=== PATIENT | male | born 1985 | race African-American/Black ===

== ENCOUNTER 2018-10-28 15:37 | Inpatient (IN) ==
[2018-10-28] MEDS ORDERED: D5 NS 1,000 ML IV ONE (16:42)
[2018-10-28] MEDS ORDERED: NS 1,000 ML IV ONE (17:06)
[2018-10-28 17:16] LABS: BASO# 0.03 X1000 (0.0-0.2); BASO% 0.4 % (0.0-0.8); EOS% 1.4 % (0.0-10.0); HEMATOCRIT 45.5 % (42.0-52.0); HEMOGLOBIN 14.9 g/dL (14.0-18.0); IMM GRAN# 0.02 X1000 (0.0-0.04); IMM GRAN% 0.3 % (0.0-0.5); MCH 29.6 PG (27-31); MCHC 32.7 g/dL (33-37); MCV 90.5 FL (81-99); MONO# 0.86 X1000 (0.11-0.59); MONO% 12.4 % (1.7-9.3); MPV 10.2 FL (7.4-10.4); NEUT% 59.5 % (42.2-75.2); PLT 211 X1000 (130-400); RBC 5.03 XMIL (4.7-6.1); WBC 6.91 X1000 (4.8-10.8)
[2018-10-28] MEDS ORDERED: MORPHINE IV ONE ×2 (17:18→19:05)
[2018-10-28 17:39] LABS: AGAP 14; ALB/GLOB RATIO 1.1; ALBUMIN 4.2 g/dL (3.5-5.0); ALKALINE PHOSPHATASE 58 U/L (32-122); BUN 11 mg/dL (8-22); CALCIUM 9.2 mg/dL (8.8-10.2); CHLORIDE 103 mmol/L (98-107); COSMO 280; CREATININE 0.9 mg/dL (0.7-1.2); ESTIMATED GFR > 60; GLUCOSE 84 mg/dL (70-104); GOT 14 U/L (10-34); GPT 8 U/L (10-44); POTASSIUM 3.4 mmol/L (3.5-5.1); SODIUM 141 mmol/L (136-145); TCO2 24 mmol/L (25-35); TOTAL BILIRUBIN 0.53 mg/dL (0.20-1.00); TOTAL PROTEIN 7.9 g/dL (6.3-8.3)
[2018-10-28 18:08] LABS: URINE SOURCE CLEAN CATCH
[2018-10-28 18:20] LABS: UR EPITHELIAL CELLS <10 /HPF (<10); URINE BACTERIA NEGATIVE /HPF; URINE RBC <10 /HPF (<10); URINE WBC <10 /HPF (<10)
--- NOTE | 2018-10-28 18:31 | Diag Imaging Result Doc PS360 ---
EXAM: CT ABD/PELVIS W/IV CONT ONLY 10/28/2018 HISTORY: Abdominal pain, FBBPR TECHNIQUE: This exam was performed using automated exposure control, adjustment of mA or kV according to patient size, and/or use of iterative reconstruction technique. COMMENT: The visualized portion of the chest is within normal limits. There are no previous studies available for comparison. The spleen and adrenal glands are not enlarged. The pancreas is unremarkable. There is no evidence of gallstones or cholecystitis. The liver is unremarkable. There is a fairly large amount of stool present in the ascending and transverse colon. The small bowel is not distended. The kidneys are without evidence of hydronephrosis or mass. The aorta is not distended. Pelvis: Some of the distal small bowel loops containing fluid without evidence of mucosal thickening. There is fluid in the cecum. The appendix is normal in caliber. There is some apparent perirectal inflammation and dilatation of perirectal veins. There are multiple enlarged perirectal nodes. The regional skeleton is intact. IMPRESSION: The possibility of mild enterocolitis cannot be excluded. Proctitis. Electronically signed by Zohaib Xiao 10/28/2018 6:28 PM
[2018-10-28 18:34] LABS: BILIRUBIN URINE SMALL (NEGATIVE); BLOOD URINE SMALL (NEGATIVE); COLOR YELLOW; GLUCOSE URINE NEGATIVE (NEGATIVE); KETONE URINE 40 mg/dL (NEGATIVE); LEUKOCYTES URINE NEGATIVE (NEGATIVE); NITRITE URINE NEGATIVE (NEGATIVE); PROTEIN URINE 50 mg/dL (NEGATIVE); SP GRAVITY URINE > 1.050; TURBIDITY URINE CLEAR (CLEAR); UROBILINOGEN URINE 4 mg/dL (NORMAL)
[2018-10-28] MEDS ORDERED: FLAGYL 750 MG in NS 150 ML IV ONE (18:44)
[2018-10-28] MEDS ORDERED: LEVAQUIN 750 MG/D5W 750 MG/150 ML IVPB IV ONE (18:44)
[2018-10-28] MEDS ORDERED: ZOFRAN IV ONE (20:19)
[2018-10-28] MEDS ORDERED: ZOFRAN ONE (20:21)
[2018-10-28] MEDS ORDERED: ZOFRAN IV PRN (21:51)
[2018-10-28] MEDS ORDERED: TYLENOL PO PRN (21:51)
--- NOTE | 2018-10-28 22:28 | PROVIDER DOCUMENTATION ---
This chart was entered by Yolis Aleman Scribe, acting as scribe for Alexx Junior MD. HPI-Abdominal Pain/GI Problem - General Chief Complaint: Constipation Stated Complaint: MALE Time Seen by Provider: 10/28/18 15:42 Source: patient Allergies/Adverse Reactions: Patient Allergies Allergy/AdvReac Type Severity Reaction Status Date / Time No Known Allergies Allergy Verified 10/28/18 15:45 Home Medications: Home Medication List Medication Instructions Recorded Confirmed Last Taken Type Elviteg/Cob/Emtri/Tenof Alafen 150 mg HS 10/28/18 10/28/18 10/27/18 History [Genvoya Tablet] Sertraline [Zoloft] 50 mg PO QHS 10/28/18 10/28/18 10/27/18 History Sulfamethoxazole/Trimethoprim 1 each PO QHS 10/28/18 10/28/18 10/27/18 History [Bactrim Ds Tablet] - History of Present Illness-ABD Nature of Presenting Problems: 33 yobm presents to the ed with c/o abdominal pain with constipation. pt sts has not had a bm in 5 days Abdominal Pain Onset Location: reports: LUQ, LLQ Pain Radiation: reports: no radiation Quality of Pain: reports: cramping (06/21) Severity in ED: reports: severe Onset/Duration: reports: 5 days ago Timing: reports: still present, intermittent Activities at Onset: reports: light activity Modifying Factors: improves with: nothing Associated Symptoms: reports: constipation, loss of appetite. denies: back/ neck pain, diarrhea, EENT symptoms, fever/chills, malaise, nausea, syncope, vomiting, weakness Last BM: 5 days ago Dark Stools Present?: reports: bright red blood Rectal Bleeding: reports: bleeding without stool # of Diarrhea Episodes: 0 Rectal Pain: reports: other (c/o pain hiv pt) # of Vomiting Episodes: 0 Emesis Description: reports: none Bruising or Bleeding Gums?: No Similar Symptoms Previously?: Yes (hx of constipation) Recently seen or treated by another doctor?: No Review of Systems - Adult - REVIEW OF SYSTEMS - ADULT Constitutional: reports: other (decreased appetite). denies: chills, fever Eyes: reports: no symptoms reported Ears, Nose, Mouth & Throat: reports: no symptoms reported Cardiovascular: denies: chest pain, palpitations Respiratory: denies: shortness of breath, wheezing Gastrointestinal: reports: see HPI, abdominal pain, constipation, poor appetite , rectal bleeding. denies: diarrhea, nausea, vomiting Genitourinary: reports: see HPI, other (rectal pain) Musculoskeletal: denies: back pain, neck pain Integumentary: reports: no symptoms reported Neurological: denies: dizziness/vertigo, headache/migraines Psychiatric: reports: no symptoms reported Endocrine: reports: no symptoms reported Hematologic/Lymphatic: reports: no symptoms reported Allergic/Immunologic: reports: no symptoms reported All Other Systems: Reviewed and Negative Past History - Adult - PAST MEDICAL HISTORY-ADULT Review of Records: reports: Old Records Reviewed, Nursing Assessment Review, Medications Reviewed, Social history reviewed & non-contributory. Major Childhood Illnesses: reports: denies history Cardiovascular: reports: denies history Respiratory: reports: denies history Gastrointestinal: reports: denies history Genitourinary: reports: denies history Musculoskeletal: reports: denies history Neurological: reports: denies history Psychiatric: reports: denies history Endocrine/Immune: reports: HIV/AIDS Other Conditions: reports: denies history - PRIOR SURGERIES/PROCEDURES Surgical/Procedure History: reports: reviewed, not pertinent - IMMUNIZATION STATUS Childhood Immunizations: See Nurse Assessment Flu Vaccine: See Nurse Assessment - FAMILY HISTORY Family History: reviewed, not pertinent - SOCIAL HISTORY Smoking: denies Substance Use: marijuana Living Situation: family Physical Exam-General - PHYSICAL EXAM-ADULT Initial Vital Signs Reviewed: Yes - CONSTITUTIONAL General Appearance: appears well, alert, no apparent distress, thin - EYES Eyes: PERRL/EOMI, pink conjunctivae - HEAD, EARS, NOSE, MOUTH & THROAT HENMT: moist mucous membranes, normal ENT inspection - NECK Neck: full range of motion, supple, normal inspection - RESPIRATORY Respiratory: chest non-tender, lungs clear, normal breath sounds - CARDIOVASCULAR Cardiovascular: normal peripheral pulses, regular rate, rhythm - GASTROINTESTINAL (ABDOMEN) Abdominal Exam: normal bowel sounds, soft, tenderness (LUQ, LLQ) - GENITOURINARY Male Genitalia: deferred Rectal Exam: normal exam, normal rectal tone, tenderness Hemoccult Exam: other (did not do) - LYMPHATIC Lymphatic: no adenopathy - MUSCULOSKELETAL Back Exam: normal inspection, no CVA tenderness, no vertebral tenderness Extremity: normal range of motion, non-tender, normal gait, normal inspection, no pedal edema, no calf tenderness, normal capillary refill, pelvis stable - SKIN Integumentary: normal color, normal turgor, warm/dry - NEUROLOGIC Neurologic: grossly normal, no motor/sensory deficits - PSYCHIATRIC Psych/Mental Status: normal mood/affect, normal thought content, normal thought process, oriented x 3 Progress - PLAN OF CARE/RESULTS Progress/Plan/Lab Results: Vital Signs - 8 hr 10/28/18 15:45 Temperature 97.7 F Pulse Rate 74 Respiratory Rate 17 Blood Pressure 131/65 O2 Sat by Pulse Oximetry 100 Patient care, assessment and plan discussed with the attending physician Dr. John Milian and he agree with the plan as documented. Result Diagrams: 10/28/18 16:21 10/28/18 16:21 - REASSESSMENT Reassessment #1 Time Reassessed: 16:19 Status: unchanged Reassessment #2 Time Reassessed: 17:44 Status: improving (ABDOMINAL PAIN IS BETTER. Patient informed about the Dx and the plan.) - CONSULTS/PCP/HOSPITALIST Notification #1 *Consult/PCP/Hospitalist*: Dr. Reed Time Discussed: 18:46 Consult Disposition: Admit (Accpeted.) Departure - Departure Date of Disposition Decision: 10/28/18 Time of Disposition Decision: 18:46 DIAGNOSIS: Proctitis, BRBPR (bright red blood per rectum) Disposition: ADMITTED INPATIENT 09 Certified Medical Emergency: Emergent Condition: Stable - Critical Care Note This patient required my direct & personal management of CC.: No Attestation - Physician/ MEETA Attestation Patient care was provided by Advanced Practice Provider:: No The physician spent face to face time with patient:: Yes Advanced Practice Provider documentation review:: Supervising physician onsite and consulted in the evaluation and care of this patient. The physician did have a face to face encounter with the patient. This chart was documented by the indicated scribe, (Yolis Aleman Scribe) and accurately reflects the services I performed and decisions made by me, Alexx Junior MD, as attested by the provider's signature.
[2018-10-28] MEDS: PROTONIX IV SCH (22:42)
[2018-10-28] MEDS: DILAUDID IV PRN (22:42)
[2018-10-28] MEDS: NS 1,000 ML IV SCH (22:42)
[2018-10-28 22:45] LABS: AGAP 13; ALB/GLOB RATIO 1.2; ALBUMIN 4.2 g/dL (3.5-5.0); ALKALINE PHOSPHATASE 71 U/L (32-122); BUN 9 mg/dL (8-22); CALCIUM 8.4 mg/dL (8.8-10.2); CHLORIDE 102 mmol/L (98-107); COSMO 273; CREATININE 0.9 mg/dL (0.7-1.2); ESTIMATED GFR > 60; GLUCOSE 81 mg/dL (70-104); GOT 56 U/L (10-34); GPT 28 U/L (10-44); POTASSIUM 2.9 mmol/L (3.5-5.1); SODIUM 138 mmol/L (136-145); TCO2 23 mmol/L (25-35); TOTAL BILIRUBIN 1.22 mg/dL (0.20-1.00); TOTAL PROTEIN 7.8 g/dL (6.3-8.3)
[2018-10-28] MEDS: ZOLOFT PO SCH (22:58)
[2018-10-29] MEDS: FLAGYL 500 MG/NS 500 MG/100 ML IVPB IV SCH ×5 (00:26→20:34)
[2018-10-29] MEDS: ZOFRAN IV PRN ×3 (00:26→23:38)
--- NOTE | 2018-10-29 03:02 | HISTORY AND PHYSICAL ---
CHIEF COMPLAINT: Abdominal pain. HISTORY OF PRESENT ILLNESS: This is a 33-year-old male with history of HIV and it sounds like poor control of his HIV, who came in with a 2-3-day history of abdominal pain, today was severe, just could not be controlled. He has not had a bowel movement he reports in 4-5 days. No nausea or vomiting. He had some nausea and vomiting while I interviewed him and he threw up very pale clear liquid. There is no fevers. No hematochezia. No melena. PAST MEDICAL HISTORY: Again HIV with technically AIDS, he says his last counts in August were less than 200, and less than 5000 viral load. SOCIAL HISTORY: No tobacco or ethanol. ALLERGIES: None. FAMILY HISTORY: Noncontributory. REVIEW OF SYSTEMS: No weight loss. No chest pain or palpitations. No cough or shortness of breath. No dysuria or hematuria. He has had perianal lesions associated with HPV. PHYSICAL EXAMINATION: VITAL SIGNS: Blood pressure was 158/85, heart rate 77, respirations 16, temperature 98.1 degrees. GENERAL: A well-developed male, he was in moderate distress due to the nausea and vomiting. HEENT: Eyes: Pupils are equal, round and reactive to light. Extraocular movements are intact. Ear, Nose, Throat: He had moist mucous membranes. NECK: Supple. CARDIOVASCULAR: Regular rate and rhythm. No murmurs, gallops, or rubs. PULMONARY: Bilateral breath sounds. Clear to auscultation. GASTROINTESTINAL: Soft, distended, some tenderness in the upper quadrants. No rebound. No guarding. SKIN: Exam was otherwise unremarkable except that he had multiple patches on his back, he says that has been going on for about a month. They are maculopapular, kind of dark hyperpigmented, mostly along the dorsum of his back, bilaterally extending up to the front. LABORATORY DATA: Normal white count. Hemoglobin and hematocrit is stable. Potassium is 2.9. Total bilirubin is up a little bit at 1.22. AST is 56. Urine was fairly clear. CT scan showed proctitis and enterocolitis. ASSESSMENT AND PLAN: This is a 33-year-old male with human immunodeficiency virus/acquired immunodeficiency syndrome who presents with proctitis and possibly early enteritis. 1. Proctitis. We will continue empiric antibiotics. She has been placed on Levaquin and Flagyl. We will obtain stool studies and continue medications as tolerated. 2. Human immunodeficiency virus with acquired immunodeficiency syndrome. He does need to be on Bactrim, he will need to be on it until his counts are improved, which may be a couple months. 3. Nausea and vomiting. He is improving. We will slowly kind of advance his diet. We will check for a different organisms Clostridium difficile, shigella, salmonella, but also other organisms (Eikenella, Isospora, and giardiasis). 4. Disposition. Pending his clinical status as he improves. cc: Fco Reed MD
[2018-10-29] MEDS: DILAUDID IV PRN ×7 (03:12→23:38)
[2018-10-29 06:50] LABS: BASO# 0.02 X1000 (0.0-0.2); BASO% 0.3 % (0.0-0.8); EOS# 0.11 X1000 (0.0-0.7); EOS% 1.6 % (0.0-10.0); HEMATOCRIT 42.5 % (42.0-52.0); HEMOGLOBIN 13.8 g/dL (14.0-18.0); IMM GRAN# 0.02 X1000 (0.0-0.04); IMM GRAN% 0.3 % (0.0-0.5); LYMPH# 1.68 X1000 (1.2-3.4); LYMPH% 23.9 % (20.5-51.1); MCH 29.9 PG (27-31); MCHC 32.5 g/dL (33-37); MONO# 0.79 X1000 (0.11-0.59); MONO% 11.2 % (1.7-9.3); MPV 9.7 FL (7.4-10.4); NEUT# 4.41 X1000 (1.4-6.5); NEUT% 62.7 % (42.2-75.2); PLT 208 X1000 (130-400); RBC 4.62 XMIL (4.7-6.1); RDW 12.9 % (11.5-14.5); WBC 7.03 X1000 (4.8-10.8)
[2018-10-29] MEDS ORDERED: LACTULOSE PO PRN (10:07)
[2018-10-29] MEDS ORDERED: LACTULOSE PO ONE (10:07)
--- NOTE | 2018-10-29 10:34 | INFECTIOUS DISEASE CONSULT REP ---
DATE: 10/29/2018 CONCLUSION: The patient has AIDS and is admitted to the hospital with enterocolitis and proctitis as seen on CT scan. Unfortunately, the patient does have some bleeding coming from his rectum, but he has not passed a stool, he told me, in 6 days. Therefore, if we are going to diagnose what the patient has, that is going to be very difficult without a stool sample. Therefore, my recommendation would be to consult GI and hopefully they will be able to scope the patient and take a biopsy of the intestine. Also, we will be able to get stool so we can send for cultures. DISCUSSION: The patient tells me that starting 6 days ago, he has been having left-sided abdominal and anal pain. He is not passing any stool, but he told me he is passing blood. He has not had fever or chills. Thus far, the information is that on CT scan abdomen and pelvis, enterocolitis and proctitis were seen. The patient's creatinine is 0.9. GFR is greater than 60. The liver function studies are normal except for an AST of 56. Urinalysis did not show any white cells or bacteria. The patient's CBC shows a white count of 7030, hemoglobin 13.8, and platelet count 208,000. PAST MEDICAL HISTORY/REVIEW OF SYSTEMS: Eyes and Ears: He does not have any difficulty hearing or seeing. Neck: No stiffness. Respiratory: No cough or shortness of breath. Genitourinary: No dysuria or flank pain. Gastrointestinal: See present illness. Bones, joints, muscles: No joint pain or muscle aches. Neurologic: No seizures or loss of motor function. Endocrine: The patient said he did not have diabetes or thyroid disease. PREVIOUS HOSPITALIZATIONS AND OPERATIONS: The patient has had skin tags removed. MEDICAL DISEASES: Negative for diabetes mellitus and hypertension. INFECTIOUS DISEASE HISTORY: The patient has had pneumonia and HIV infection. He is being seeing at the [facility] in [place]. The patient is taking Genvoya. The patient told me that his HIV infection is nondetectable and his CD4 count was normal. However, he told Dr. Reed that he was not under good control. FAMILY HISTORY: Positive for cancer. Negative for diabetes. SOCIAL HISTORY: [place] the [place] with his cousin. He said he does not drink alcoholic beverages, abuse drugs, or smoke cigarettes. The patient works on the [employer] line for [employer]. ALLERGIES: No known allergies. HOME MEDICATIONS: Genvoya, Zoloft, and Septra. PHYSICAL EXAMINATION: Vital Signs: Temperature 97.9 degrees, pulse 59, respirations 16, blood pressure 120/62. The patient is 5 feet 11 inches tall and weighs 167 pounds. General: This is a healthy-appearing young male. He is in no acute distress. Head, Eyes, Ears, Nose, Throat: He can hear my spoken words and see near objects. No drainage noted from the nose or ears. No white coating on his tongue. Neck: No meningismus. Lungs: Clear to auscultation. Cardiovascular: Heart rate is regular. Abdomen: Tender on the left side. Rectal: The patient did not want me to perform a rectal exam, but he did allow me to look at his rectum. I did not see any abnormality. Neurologic: The patient is alert. He can move his extremities. There is no tremor. His memory as regarding his medical condition is intact. Integument: No rash. cc: MD Fco Blanchard MD
[2018-10-29] MEDS: NS 1,000 ML IV SCH ×3 (13:19→23:38)
[2018-10-29] MEDS: MIRALAX PO SCH (13:33)
[2018-10-29] MEDS: LEVAQUIN 500 MG/D5W 500 MG/100 ML IVPB IV SCH ×2 (17:03→18:27)
--- NOTE | 2018-10-29 18:22 | GASTROENTEROLOGY CONSULTATION ---
DATE: 10/29/2018 REASON FOR CONSULTATION: Proctitis, rectal bleeding. HISTORY OF PRESENT ILLNESS: The patient is a 33-year-old male with a history of HIV who presents with 5-6 days of constipation, abdominal pain and rectal bleeding. He denies any nausea, vomiting, fevers, weight loss, diarrhea or melena. He denies any trauma. He does report some perianal tenderness and has a history of perianal HPV, although his current symptoms do not appear similar to his prior history. No family history of GI malignancies or inflammatory bowel disease. Denies any prior colonoscopy. PAST MEDICAL HISTORY: HIV/AIDS. SOCIAL HISTORY: Denies tobacco or ethanol use. ALLERGIES: None. FAMILY HISTORY: Reviewed and noncontributory. REVIEW OF SYSTEMS: Positive for abdominal pain, rectal bleeding, perianal tenderness, constipation, rash on upper extremities. Otherwise, 12-point review of systems was negative PHYSICAL EXAMINATION: Vital Signs: Temperature 98.0, pulse 50, respiratory rate 16, blood pressure 127/84, oxygen saturation 99% on room air. Weight is 167 pounds. General: The patient is awake, alert and oriented, in no acute distress. HEENT: Extraocular motor intact. Moist mucous membranes. Anicteric sclerae. No oral ulcers. Neck: No lymphadenopathy. No JVD. Cardiac: Regular rate and rhythm. No murmurs, rubs, or gallops. Pulmonary: Clear to auscultation bilaterally. Normal work of breathing. Abdomen: Mild diffuse tenderness on palpation, particularly in the left lower quadrant. No rebound or guarding. Nondistended. No ascites. Bowel sounds present. Extremities: No clubbing, cyanosis, or edema. Neurologic: Nonfocal. Moving all extremities symmetrically. LABORATORY DATA: WBCs 7.0, hemoglobin 13.8, platelets 208,000. Sodium 138, potassium 2.9, chloride 102, bicarb 23. BUN is 19, creatinine 0.9. Total bilirubin 1.22. AST is 56, ALT 28, alkaline phosphatase 71. Total protein 7.8, albumin 4.2. Urinalysis notable for proteinuria, ketones, small amount of blood. CT abdomen and pelvis with IV contrast shows some fluid-filled loops in the distal small bowel without evidence of mucosal thickening. Fecal loading in the ascending and transverse colon. Notable perirectal inflammation and dilation of the perirectal veins as well as perirectal lymph node enlargement concerning for proctitis. C difficile toxin negative. FOBT positive. Ova and parasite negative. Stool culture pending. Stool WBCs many. ASSESSMENT/PLAN: Mr. Ian Jiang is a 33-year-old man with a history of HIV/ AIDS who presents with abdominal pain in the setting of 5-6 days of constipation and rectal bleeding, found to have proctitis on imaging. 1. The etiology of his proctitis appears to be possibly infectious in etiology, although it can be seen in patients with stercoral ulcers in the setting of constipation. Other etiologies include ulcerative proctitis. His rectal bleeding is likely secondary to his proctitis. He was started on antibiotics for presumably an infectious etiology. The patient has not had a bowel movement since admission. We will consider a possible diagnostic sigmoidoscopy if his clinical status does not improve early next week. 2. HIV/AIDS. Infectious disease is following. A CD4 count is pending. The patient reports compliance with his heart therapy. 3. Constipation. Will start the patient on a bowel regimen. He currently is on lactulose as needed for constipation, as well as MiraLAX once daily. 4. Rectal bleeding. The patient is currently on pantoprazole 40 mg once daily. We will follow the patient with you. Please call with any questions or concerns. cc: Fco Reed MD MTDD
[2018-10-29] MEDS: ZOLOFT PO SCH (20:34)
[2018-10-29] MEDS: SEPTRA DS PO SCH ×2 (22:10→23:38)
[2018-10-29] MEDS: PROTONIX IV SCH (22:44)
[2018-10-29] MEDS: SODIUM CHLORIDE 0.9% INJ SCH (22:45)
[2018-10-29] MEDS: PATIENT'S OWN MED PO SCH (23:17)
--- NOTE | 2018-10-30 00:19 | PROGRESS NOTE ---
DATE: 10/29/2018 SUBJECTIVE: The patient has no focal complaints. OBJECTIVE: Vital Signs: Blood pressure is 127/84, heart rate of 50, respiratory rate 16, temperature 98 degrees, 99% on room air. Cardiovascular: Regular rate and rhythm. Pulmonary: Bilateral breath sounds. Clear to auscultation. GI: Soft, nontender, nondistended. Bowel sounds are positive. LABORATORY DATA: White count 7, hemoglobin and hematocrit 13 and 42, platelets 208. I do not have new electrolyte data. Micro thus far is negative. PROBLEM LIST: 1. Enterocolitis, proctitis. He is on Levaquin and Flagyl. We are waiting for treatment. He did not get a stool sample. Dr. Woods was consulted, but I do not have a note yet. That being said, we put him on bowel regimens. I put him on lactulose this morning and MiraLAX, and he had a bowel movement. We have gotten stool studies. Ova and parasites is negative, and stool culture is pending. He has many white blood cells, he is heme-positive, which are both nonspecific. Still could be infectious colitis, but it could also be inflammatory bowel disease. I am waiting on some more final results there. He may indeed need endoscopy. 2. HIV. He reports that his HIV status is good, because he told me it was normal. The patient is doing okay. We will see how he does, and hopefully discharge in the next couple days. cc: Fco Reed MD
[2018-10-30] MEDS: FLAGYL 500 MG/NS 500 MG/100 ML IVPB IV SCH ×4 (02:32→20:09)
[2018-10-30] MEDS: NS 1,000 ML IV SCH ×3 (04:14→14:56)
[2018-10-30 06:05] LABS: BASO# 0.04 X1000 (0.0-0.2); BASO% 0.7 % (0.0-0.8); EOS# 0.16 X1000 (0.0-0.7); HEMATOCRIT 40.5 % (42.0-52.0); HEMOGLOBIN 13.1 g/dL (14.0-18.0); LYMPH# 1.52 X1000 (1.2-3.4); LYMPH% 28.1 % (20.5-51.1); MCH 29.7 PG (27-31); MCHC 32.3 g/dL (33-37); MCV 91.8 FL (81-99); MONO# 0.68 X1000 (0.11-0.59); MONO% 12.6 % (1.7-9.3); MPV 9.7 FL (7.4-10.4); NEUT# 3.01 X1000 (1.4-6.5); NEUT% 55.6 % (42.2-75.2); PLT 205 X1000 (130-400); RBC 4.41 XMIL (4.7-6.1); RDW 12.7 % (11.5-14.5); WBC 5.41 X1000 (4.8-10.8)
[2018-10-30 06:46] LABS: AGAP 12; BUN 5 mg/dL (8-22); CALCIUM 8.5 mg/dL (8.8-10.2); CHLORIDE 104 mmol/L (98-107); COSMO 275; CREATININE 0.8 mg/dL (0.7-1.2); ESTIMATED GFR > 60; GLUCOSE 76 mg/dL (70-104); SODIUM 140 mmol/L (136-145); TCO2 24 mmol/L (25-35)
[2018-10-30] MEDS: DILAUDID IV PRN ×4 (07:53→20:08)
[2018-10-30] MEDS: ZOFRAN IV PRN ×4 (07:53→20:08)
[2018-10-30] MEDS: MIRALAX PO SCH ×3 (15:29→21:24)
[2018-10-30] MEDS ORDERED: SALINE LOCK IV FLUID XX ONE (17:46)
[2018-10-30] MEDS: LEVAQUIN 500 MG/D5W 500 MG/100 ML IVPB IV SCH ×2 (18:00→20:09)
[2018-10-30] MEDS: ZOLOFT PO SCH (20:09)
[2018-10-30] MEDS: SEPTRA DS PO SCH (20:09)
[2018-10-30] MEDS: PATIENT'S OWN MED PO SCH (20:10)
--- NOTE | 2018-10-30 23:12 | PROGRESS NOTE ---
DATE: 10/30/2018 SUBJECTIVE: Patient resting in bed. He is moving his bowels. Complains abdominal discomfort. He denies any fevers, rigors, chills. Denies any nausea or vomiting. OBJECTIVE: Vital signs: Temperature 97.9 degrees, pulse of 53, respiratory 16 , blood pressure 130/82 saturating 100% room air, body weight of 167 pounds, BMI 23.3 kg Moderately-built, moderately-nourished lying in bed in no acute distress. HEENT: Mild pallor, no icterus. Pupils equal, reactive to light. Neck: Supple. Abdomen: Discomfort in the left lower quadrant. No rebound. Extremities: No cyanosis, clubbing. Neuro: Is alert, awake, oriented. LABS: Hemoglobin and hematocrit is 13.1, white count of 5.41, platelet count of 205,000, sodium 140, potassium 4, chloride 104, bicarb 24, anion gap 12, BUN of 5, creatinine 0.8, glucose of 76, calcium is 8.5, magnesium 2.0, stool for white cells is many and stool culture showing currently no enteric pathogen, ova and parasites negative. Stool for occult blood is positive and stool for C difficile toxin is negative. IMPRESSION AND PLAN: 1. Constipation the right colon, we will continue on MiraLAX and will increase MiraLAX to twice daily. 2. Since patient has constipation we need to reduce the narcotics low as possible. 3. Enterocolitis and proctitis, there is a question of stercoral colitis. His stool studies have been negative. Will continue to follow. 4. Human immunodeficiency virus, this is being monitored primary team . 5. Gastrointestinal prophylaxis with PPIs. 6. The above plans discussed the patient and all questions answered. Please call us with further questions. cc: MD Fco Spicer MD [facility]
--- NOTE | 2018-10-30 23:25 | PROGRESS NOTE ---
DATE: 10/30/2018 SUBJECTIVE: Patient has no focal complaints. OBJECTIVE: Blood pressure is 138/82, heart rate of 53, respiratory rate 16, temperature 97.9 degrees.Cardiovascular: Regular rate and rhythm. Pulmonary: Bilateral breath sounds clear to auscultation. GI: Soft, nontender, nondistended. Bowel sounds are positive. LABORATORY DATA: White count 5, hemoglobin and hematocrit 13 and 40, platelets 205,000. Basic was really unremarkable. Stool studies have all been negative. Hemoccult was positive though and stool white blood cells are positive. PROBLEM LIST: 1. Colitis possibly proctitis. We will continue empiric antibiotics and follow. So far it has been negative though. 2. Human immunodeficiency virus status with unclear if it is controlled or not. He does take his medication but he reported a CD4 count less than 200 although his white count is normal, his repeat CD4 and human immunodeficiency virus is stable. Discharge condition is stable. Continue to follow closely, possibly waiting for endoscopy in a couple days. cc: Fco Reed MD
[2018-10-31] MEDS: FLAGYL 500 MG/NS 500 MG/100 ML IVPB IV SCH ×4 (01:26→20:02)
[2018-10-31] MEDS: ZOFRAN IV PRN ×3 (01:27→19:57)
[2018-10-31] MEDS: DILAUDID IV PRN ×5 (01:27→23:10)
[2018-10-31] MEDS: SODIUM CHLORIDE 0.9% INJ SCH (01:28)
[2018-10-31] MEDS: PROTONIX IV SCH (01:28)
[2018-10-31 06:56] LABS: BASO# 0.06 X1000 (0.0-0.2); BASO% 1.2 % (0.0-0.8); HEMATOCRIT 41.5 % (42.0-52.0); HEMOGLOBIN 13.5 g/dL (14.0-18.0); LYMPH# 1.93 X1000 (1.2-3.4); LYMPH% 39.1 % (20.5-51.1); MCH 29.5 PG (27-31); MCHC 32.5 g/dL (33-37); MCV 90.6 FL (81-99); MONO# 0.77 X1000 (0.11-0.59); MONO% 15.6 % (1.7-9.3); NEUT# 1.98 X1000 (1.4-6.5); NEUT% 40.1 % (42.2-75.2); PLT 231 X1000 (130-400); RBC 4.58 XMIL (4.7-6.1); RDW 12.8 % (11.5-14.5); WBC 4.94 X1000 (4.8-10.8)
[2018-10-31 07:29] LABS: AGAP 12; BUN 8 mg/dL (8-22); CALCIUM 8.8 mg/dL (8.8-10.2); CHLORIDE 104 mmol/L (98-107); COSMO 275; CREATININE 0.9 mg/dL (0.7-1.2); ESTIMATED GFR > 60; GLUCOSE 86 mg/dL (70-104); POTASSIUM 3.9 mmol/L (3.5-5.1); SODIUM 139 mmol/L (136-145); TCO2 23 mmol/L (25-35)
[2018-10-31] MEDS: MIRALAX PO SCH ×2 (08:39→20:04)
--- NOTE | 2018-10-31 10:38 | GASTROENTEROLOGY PROGRESS NOTE ---
DATE: 10/31/2018 SUBJECTIVE: He is resting in bed. He complains of abdominal discomfort. He is moving his bowels. Denies any blood in the stools. OBJECTIVE: Vital Signs: Temperature 97.4 degrees, pulse of 61, respiratory rate 12, blood pressure 134/82, saturating 100% on room air. General Appearance: Moderately nourished, lying in bed in no acute distress. HEENT: No pallor. No icterus. Neck: Supple. Abdomen: Discomfort in the pelvic region. No rebound. No guarding. Nondistended abdomen. Extremities: No cyanosis, clubbing, edema. Neurologic: He is alert, awake, oriented x3. LABORATORY DATA: Hemoglobin and hematocrit are 13.5 and 41.5, white count of 4.94, platelet count of 231,000. Sodium 139, potassium 3.1, chloride 104, bicarb 23, anion gap 12, BUN of 8, creatinine 0.9, glucose of 86, calcium is 8.8. Stool studies have been negative for culture, negative ova and parasites, negative Clostridium difficile toxin. His stool occult blood is positive, and stool for white cells are many. IMPRESSION AND PLAN: 1. Constipation, right colon. MiraLAX twice daily. 2. Proctitis. We will perform a flexible sigmoidoscopy tomorrow. The risks, benefits, indications, and alternatives were discussed with the patient, and all questions were answered. 3. Human immunodeficiency virus. His labs are currently pending. 4. Gastrointestinal prophylaxis with proton pump inhibitors. 5. Mild anemia. Aware. The above plans were discussed with the patient, and all questions were answered. Please call us with any further questions. cc: MD Fco Spicer MD Leroy F. Harris, MD
[2018-10-31] MEDS ORDERED: GOLYTELY PO ONE (14:00)
--- NOTE | 2018-10-31 19:13 | PROGRESS NOTE ---
DATE: 10/31/2018 SUBJECTIVE: Patient has no focal complaints. OBJECTIVE: Vital Signs: Blood pressure is 127/90, heart rate of 56, respiratory rate 14, temperature 98.1. Cardiovascular: Regular rate and rhythm. Pulmonary: Bilateral breath sounds. Clear to auscultation. Gastrointestinal: Soft, nontender, nondistended. Bowel sounds are positive. LABORATORY DATA: Hemoglobin and hematocrit of 13 and 41, platelets of 231,000. Basic was normal. PROBLEM LIST: 1. Proctitis enterocolitis. He is on empiric antibiotics. Plan will be for endoscopy tomorrow per Dr. Clark and hopefully we will get a better idea. The stool studies thus far showed heme positivity and white blood cells, but no clear evidence of infection. 2. Constipation. He is on medications for that. 3. HIV. It is unclear if he has got AIDS syndrome. We will continue to monitor. Waiting on CD4 count and his HIV viral load. 4. Disposition: If he is stable and tolerating p.o. without difficulty, I think he could probably go home in the next 24 hours pending his endoscopy findings. cc: Fco Reed MD
[2018-10-31] MEDS: ZOLOFT PO SCH (20:01)
[2018-10-31] MEDS: SEPTRA DS PO SCH (20:01)
[2018-10-31] MEDS: PATIENT'S OWN MED PO SCH (20:16)
[2018-11-01] MEDS: FLAGYL 500 MG/NS 500 MG/100 ML IVPB IV SCH ×2 (02:18→08:29)
[2018-11-01] MEDS: PROTONIX IV SCH (02:18)
[2018-11-01] MEDS: SODIUM CHLORIDE 0.9% INJ SCH (02:18)
[2018-11-01] MEDS: DILAUDID IV PRN ×5 (02:19→21:15)
[2018-11-01] MEDS: ZOFRAN IV PRN ×3 (02:19→17:44)
[2018-11-01 06:52] LABS: BASO# 0.05 X1000 (0.0-0.2); BASO% 0.8 % (0.0-0.8); EOS# 0.18 X1000 (0.0-0.7); HEMATOCRIT 43.8 % (42.0-52.0); HEMOGLOBIN 14.2 g/dL (14.0-18.0); LYMPH# 2.11 X1000 (1.2-3.4); LYMPH% 35.5 % (20.5-51.1); MCH 29.5 PG (27-31); MCHC 32.4 g/dL (33-37); MCV 91.1 FL (81-99); MONO# 0.75 X1000 (0.11-0.59); MONO% 12.6 % (1.7-9.3); MPV 9.8 FL (7.4-10.4); NEUT# 2.85 X1000 (1.4-6.5); NEUT% 48.1 % (42.2-75.2); PLT 258 X1000 (130-400); RBC 4.81 XMIL (4.7-6.1); RDW 12.7 % (11.5-14.5); WBC 5.94 X1000 (4.8-10.8)
[2018-11-01 07:06] LABS: AGAP 12; BUN 6 mg/dL (8-22); CALCIUM 8.9 mg/dL (8.8-10.2); CHLORIDE 101 mmol/L (98-107); COSMO 273; ESTIMATED GFR > 60; GLUCOSE 90 mg/dL (70-104); POTASSIUM 3.7 mmol/L (3.5-5.1); SODIUM 138 mmol/L (136-145); TCO2 25 mmol/L (25-35)
[2018-11-01] MEDS: MIRALAX PO SCH ×2 (08:30→21:16)
[2018-11-01] MEDS ORDERED: XYLOCAINE-MPF 2% ONE (09:34)
[2018-11-01] MEDS ORDERED: DIPRIVAN 1% ONE ×2 (09:35→10:13)
--- NOTE | 2018-11-01 11:07 | OPERATIVE NOTE ---
PROCEDURE DATE: 11/01/2018 REQUESTING PHYSICIAN: Dr. Peter Wilhelm. TITLE OF PROCEDURE: Colonoscopy with biopsy of the proctitis and anal polyps. PREOPERATIVE DIAGNOSES: 1. Abnormal CT showing evidence of proctitis. 2. Evidence of constipation. 3. History of human immunodeficiency virus. 4. Rectal bleeding. POSTOPERATIVE DIAGNOSES: 1. Proctitis noted in the rectum up to 15 cm from the anal verge. This was biopsied. Likely stercoral colitis, need to rule out ulcerative colitis. 2. Evidence of anal polyps at the anal verge and just above the anal verge. These were biopsied to rule out condylomas. 3. Stool throughout the colon, fair prep. 4. Normal terminal ileum. Again, stool in the terminal ileum. ESTIMATED BLOOD LOSS: Minimal. COMPLICATIONS: None. ANESTHESIA: Monitored anesthesia care per the anesthesiologist. SPECIMENS: 1. Rectal biopsy to evaluate for stercoral colitis. 2. Anal polyp biopsy. DESCRIPTION OF PROCEDURE: After informed consent from the patient explained the risks, benefits, indications, alternatives to the procedure, the patient was prepared for colonoscopy. The risks of the procedure, including infection, bleeding, pain, trauma to the surrounding structures, perforation, were explained the patient, among others and he acknowledged understanding and agreed to proceed with the procedure. Patient was brought to the OR. He was turned in the left lateral position. Rectal exam was performed which revealed normal rectal tone. We felt the anal polyps. After monitored anesthesia care, the colonoscope was introduced through the anal verge and was traversed all the way to the terminal ileum. Terminal ileum showed evidence of stool. The right colon, cecum, ascending colon, transverse colon, and descending all full of liquid and thick brown stool. This was lavaged. The underlying mucosa did not show any evidence of any colitis. Colitis noted in the rectum about 15 cm from the anal verge. The mucosa showed evidence of erythema, friability, erosions. This was biopsied to rule out stercoral colitis versus ulcerative colitis. Retroflexion revealed anal polyps, appeared like condyloma. This was biopsied. The air and scope were withdrawn. The patient tolerated the procedure well and continued to be monitored in the OR in stable condition. RECOMMENDATIONS: 1. Patient will be on regular diet. 2. We will call a surgical consult for possible resection of the anal polyps to reduce risk of any kind of any malignancy in future. 3. The patient will follow up in the clinic in 4 weeks of discharge. 4. The patient will be on MiraLAX 17 g p.o. b.i.d. and Metamucil once daily. 5. The patient will call office in 2 weeks for the biopsy report. 6. We will repeat a colonoscopy in 1 year to evaluate the colitis. 7. Further recommendations to follow pending the hospital course. cc: MD Fco Spicer MD Leroy F. Harris, MD MTDD
--- NOTE | 2018-11-01 12:05 | GENERAL SURGERY CONSULTATION ---
DATE: 11/01/2018 REQUESTING PHYSICIAN: Dr. Woods. REASON FOR CONSULTATION: Consult concerning anal lesions. HISTORY OF PRESENT ILLNESS: A 33-year-old male with a history of HIV, who presented initially with abdominal pain, severe. During the workup, he was found to have proctitis. He was also discovered on colonoscopy today to have multiple anal polyps. Given this, I was asked to weigh an opinion. The patient is currently not complaining of a lot of pain, but has recently recovered from anesthesia. I reviewed Dr. Woods's colonoscopy dictation from today. PAST MEDICAL HISTORY: Includes HIV with counts less than 200. PAST SURGICAL HISTORY: Includes recent colonoscopy. SOCIAL HISTORY: No alcohol or tobacco. ALLERGIES: None. HOME MEDICATIONS: Reviewed. FAMILY HISTORY: Reviewed with the patient and noncontributory. REVIEW OF SYSTEMS: A full 10-point review of systems was obtained and negative as specified in the HPI. PHYSICAL EXAMINATION: Vital Signs: The patient is currently afebrile. His vital signs are stable. General: No acute distress. HEENT: Normocephalic, atraumatic. Pupils equal, round, reactive to light. Mucous membranes moist. Oropharynx benign. Neck: Supple, trachea midline. Cardiovascular: Regular rate and rhythm. Lungs: Grossly clear. Abdomen: Soft, nontender, nondistended. Extremities: He moves all extremities. Neurologic: Grossly intact. Skin: No signs of jaundice. Vascular: All extremities perfused. LABORATORY DATA: White blood count 5, hematocrit 43, platelet count 258,000. Viral load is low. CT scan independently reviewed, and radiology report reviewed shows proctitis. ASSESSMENT AND PLAN: A 33-year-old with human immunodeficiency virus (HIV) with proctitis and anal masses. 1. Proctitis with anal masses. At this time, we will follow up with the pathology from the biopsies. We will make further recommendations once these are back. The patient may need surgical intervention, but again we will follow up with the pathology. 2. Human immunodeficiency virus (HIV), at this time being managed by Infectious Disease. I appreciate the consult. cc: MD Fco Smith MD
--- NOTE | 2018-11-01 15:50 | INFECTIOUS DISEASE PROGRESS NO ---
DATE: 11/01/2018 PRESENT ILLNESS: The patient has returned from colonoscopy and he has been found to have proctitis, which may be due to stercoral colitis. He also was found to have anal polyps, which could be due to condylomata. MEDICATIONS: The patient is not on any medication for the 2 findings mentioned above. PHYSICAL EXAMINATION: Vital Signs: Temperature 98.2 degrees, pulse 54, respirations 14, blood pressure 142/77. General: This is a fairly healthy-appearing, young male. He is in no acute distress. Head, eyes, ears, nose, and throat: He can hear my spoken words and see near objects. He does have some white coating on his tongue. He told me nothing is bothering him about his tongue and he did not want any medicine like fluconazole or Mycostatin for it. Neck: No meningismus. Lungs: Clear to auscultation. Cardiovascular: Regular heart rate. Abdomen: Soft without masses or tenderness. Neurologic: The patient is alert. He can move his extremities. There is no tremor. LAB AND X-RAY: There is no new radiographic study. The patient's CBC today shows a white count of 5940, hemoglobin 14.2, and platelet count 258,000. Creatinine is 1.0. GFR is greater than 60. The patient's HIV RNA by PCR was less than 20. The patient's absolute CD4 count was 195. ASSESSMENT AND PLAN: The patient appears to be under good control from his human immunodeficiency virus infection. The colonoscopy findings by Dr. Woods are still pending. The biopsies have not yet been read. My plan would be for the patient to follow up with Dr. Woods and to continue on his antiretroviral therapy. He goes to [facility] and receives all of his medicine and care through [facility]. I am signing off the patient's case and available to see him on a p.r.n. basis. The patient is going to be turned over to Dr. Woods, who will see him regarding the colonoscopy results and what to do about them, and also he will be going to [facility] where they will be treating his human immunodeficiency virus infection and all other complications. COMORBIDITIES: The patient's main comorbidity is that he has HIV infection, but he appears to be under good control with his current antiretroviral therapy consisting of Genvoya. cc: MD Fco Blanchard MD
--- NOTE | 2018-11-01 15:53 | INFECTIOUS DISEASE PROGRESS NO ---
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 I told him that I thought he needed treatment for that and that potentially it could be involving his esophagus. The patient now does agree treatment. I have printed out a prescription for fluconazole 200 mg daily for 2 weeks and then I have requested that the patient come to my office in 2 weeks to see how he is doing. cc: MD Fco Blanchard MD
[2018-11-01] MEDS ORDERED: METAMUCIL POWDER PACKET PO SCH (21:00)
--- NOTE | 2018-11-01 21:02 | PROGRESS NOTE ---
DATE: 11/01/2018 SUBJECTIVE: Patient resting in bed comfortable not in any obvious distress. OBJECTIVE: Vital Signs: Temperature 98.3 degrees, pulse is 52, respiratory 16, blood pressure 130/70, oxygen 100%. HEENT: Atraumatic, normocephalic. Cardiovascular: S1, S2. Respiratory: Has evidence of good air entry bilaterally. Abdomen: Soft, nontender, no masses. Extremities: No evidence of edema. Central nervous system: No obvious focal deficits noted. LABS: WBC is 5.94, hematocrit is 43.8 with a platelet count of 258,000, sodium is 138, potassium 3.7, chloride is 101, bicarb 25, BUN is 6, creatinine 1.0. ASSESSMENT AND PLAN: 1. Proctitis/enterocolitis. 2. Constipation. 3. Human immunodeficiency virus. Patient did have a CT scan of the abdomen and pelvis on 10/28/2018 which raised the possibility of mild enterocolitis as well as proctitis. At this time he is not receiving any antibiotics. The patient did have a colonoscopy biopsy of the proctitis and anal polyps done today. The patient can be discharged home to follow up with Dr. Peter Wilhelm as well as Dr. Woods in the outpatient. The patient was going to be discharged home today but he actually indicated he would like to go home tomorrow so he can be discharged home tomorrow 11/02/2018. cc: MD Fco Diallo MD
[2018-11-01] MEDS: PERIDEX MT SCH (21:15)
[2018-11-01] MEDS: ZOLOFT PO SCH (21:16)
[2018-11-02] MEDS: DILAUDID IV PRN ×6 (00:17→17:14)
[2018-11-02] MEDS: ZOFRAN IV PRN ×3 (00:17→13:35)
[2018-11-02] MEDS: SODIUM CHLORIDE 0.9% INJ SCH (00:18)
[2018-11-02] MEDS: PROTONIX IV SCH (00:18)
--- NOTE | 2018-11-02 06:18 | GENERAL SURGERY PROGRESS NOTE ---
DATE: 11/02/2018 SUBJECTIVE: Patient seems to be doing okay. It looks like he might be discharged today. OBJECTIVE: Vital Signs: Patient is currently afebrile. His vital signs are stable. General: No acute distress. Resting comfortably. HEENT: Normocephalic, atraumatic. Pupils equal, round, reactive to light. Mucous membranes moist. Oropharynx benign. Neck: Supple. Trachea midline. Cardiovascular: Regular rate and rhythm. Lungs: Grossly clear. Abdomen: Soft, nontender, nondistended. Extremities: Moves all extremities. Neurologic: Grossly intact. Skin: No signs of jaundice. Vascular: All extremities perfused. LABORATORY: None this morning. ASSESSMENT AND PLAN: A 33-year-old with human immunodeficiency virus with proctitis and anal masses. 1. Proctitis with anal mass. At this time, we will wait for pathology and make further recommendations, but I can see the patient as an outpatient if he gets discharged today. 2. Human immunodeficiency virus, this time being managed by Infectious Disease. cc: MD Fco Smith MD
[2018-11-02] MEDS: PATIENT'S OWN MED PO SCH (06:25)
[2018-11-02] MEDS: MYCOSTATIN SUSP PO SCH ×3 (09:00→17:30)
[2018-11-02] MEDS: PERIDEX MT SCH (09:51)
[2018-11-02] MEDS: DIFLUCAN PO SCH ×2 (09:51→14:22)
[2018-11-02] MEDS: MIRALAX PO SCH (09:52)
--- NOTE | 2018-11-02 12:51 | GASTROENTEROLOGY PROGRESS NOTE ---
DATE: 11/02/2018 SUBJECTIVE: The patient underwent diagnostic colonoscopy with biopsy. Yesterday, colonoscopy revealed proctitis up to 17 cm from the anal verge, thought to be likely related to stercoral colitis. Biopsies were taken to rule out ulcerative colitis. There was also anal polyps that were noted. Surgery consult is pending. No acute overnight events. Patient is afebrile. Patient does report some mild perianal tenderness. No abdominal pain, diarrhea, or rectal bleeding. He is tolerating a regular diet. No fevers, chills, or sweats. OBJECTIVE: Vital Signs: Temperature 97.7 degrees, heart rate 55, respiratory rate of 16, blood pressure 116/64, saturating 100% on room air. Generally: Awake, alert, oriented, in no acute distress. HEENT: Anicteric. Moist mucous membranes. Neck: No lymphadenopathy. Chest: Regular rate and rhythm. No murmurs, rubs, or gallops. Lungs: Clear to auscultation bilaterally. Abdomen: Soft, nontender, nondistended. Normoactive bowel sounds. No rebound or guarding. Lower Extremities: No clubbing, cyanosis, edema. Neuro: Nonfocal. LABS: No new labs today. Biopsies from colonoscopy are pending. ASSESSMENT AND PLAN: Mr. Ian Jiang is a 33-year-old gentleman with history of human immunodeficiency virus/acquired immunodeficiency syndrome, who presented with proctitis in the setting of prolonged episode of constipation. He is status post colonoscopy revealing proctitis as well as anal polyps. Proctitis thought to be related to stercoral colitis in the setting of constipation. Other etiologies include infectious and inflammatory. Biopsies are pending. Surgery was consulted for evaluation of anal polyps. The patient's constipation has improved significantly with bowel prep. 1. Proctitis. As above. Continue bowel regimen for constipation. 2. Human immunodeficiency virus/acquired immunodeficiency syndrome. A CD4 of 195. Infectious Disease team following. 3. Constipation. Bowel regimen as above. 4. We will follow with you. Please call with any questions or concerns.
[2018-11-02 14:47] VITALS: BP 124/62
--- NOTE | 2018-11-03 05:14 | DISCHARGE SUMMARY ---
ADMISSION DATE: 10/28/2018 DISCHARGE DATE: 11/02/2018 DISCHARGE DIAGNOSES: 1. Proctitis. 2. Enterocolitis. HISTORY: He seems to be doing okay. He was admitted on the for abdominal pain and possible proctitis enterocolitis. All of his stool studies were negative except he had heme positivity, and his white blood cells for stool were positive. C. Diff testing was negative. The patient clinically improved. He did get a GI workup, who recommended endoscopy and treatment of his constipation. He underwent colonoscopy with biopsy of the proctitis and polyps, which was felt to be stercoral colitis, and he had anal polyps which were also biopsied. In any case, he was doing okay. He had no more fevers. His hemoglobin and hematocrit was stable. If anything, increased white count was normal so he was felt stable for discharge on the . His CD4 count though absolute was 195, which is low but his HIV quantifiable virus was negative, it was not undetectable, but it was less than 20, which would indicate good control. I am not quite sure here, but technically he does have AIDS based on CD4. He had previously been on Bactrim, which I think we will reinstitute that and follow. In any case, he was encouraged to follow up with his primary HIV doctors in [place]. Dr. Woods to follow up on the other types of colitis, and Dr. Ruggiero to follow up on possible resection of anal polyps. TIME SPENT: This is a 32 minute discharge. Refer to Dr. Woods, Dr. Wilhelm and Dr. Ruggiero. cc: Fco Reed MD
== END 2018-11-02 18:22 | disposition home or self-care (01) | DRG 977 ==
LOC: ED 15:37 → 4N 20:20 → SUATTDRO 20:20
PROVIDERS: ATTEND Internal Medicine
CPT/HCPCS: 51701; 74177; 80048; 80053; 81001; 82270; 83630; 83735; 85025; 86360; 87045; 87046; 87177; 87205; 87324; 87427; 87449; 87536; 87798; 88305; 88313; 89055; 94761; 94799; 96365; 96366; 96368; 96375; 96376; 99285; A9270; C9113; J1170; J1956; J2270; J2405; J7030; P9612; Q9967; S0030; S0164